=== PATIENT | female | born 1990 | race Caucasian/White ===

== ENCOUNTER 2016-12-01 20:44 | Inpatient (IN) | payer OTHER ==
[~2016-12-01] VITALS: Ht 162.6 cm; Wt 125.0 kg
[~2016-12-01 20:44] MED LIST: ACET650S24 PO; ACYC400T2 PO
[2016-12-02] MEDS ORDERED: Magnesium Hydroxide 10 mL Oral Concentration PO PRN (01:15)
[2016-12-02] MEDS ORDERED: Alum-Mag Hydrox-Simeth 30 mL Suspension PO PRN (01:15)
[2016-12-02] MEDS ORDERED: Benzocaine-Menthol Lozenge 2/Pkg PO PRN (01:15)
[2016-12-02] MEDS: Zolpidem 5 mg Tablet for FEMALE or >65YO PO PRN ×2 (02:20→21:26)
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
[2016-12-02 13:01] VITALS: BP 106/63; PULSE 59
--- NOTE | 2016-12-02 13:33 | NUR ---
Nursing day note- Patient keeping to herself and is guarded and made no eye contact when I attempted to talk with her. She has spent a large portion of the day coloring pictures for her children. She says that she doesn't want to be here. She stated that she was able to sleep last night after she was given a sleeping pill. She said that she was feeling weak, and was instructed to drink more fluids and to lie down in bed if she needed to.
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
--- NOTE | 2016-12-02 14:56 | NUR ---
Obs Dayshift Pt is spending most of her day out in the milieu coloring, play cards, and passing the time but keeping to herself. Pt does respond to staff, quiet and superficial. Doesn't engage w/ peers, poor eye contact, attends groups. quietly participates, appropriate, calm. Pt spent the morning doing art work for her kids. Pt appearance is flat, sad, disengaged. Good ADL's, Good meals
--- NOTE | 2016-12-02 16:03 | NUR ---
Wedger And Gluer/Counselor S:"I just miss my babies being little." O:Patient does not report any SI or HI, no AVH and rated her anxiety at a 0 and her depression at an 8. A: Patient was very cooperative and open. She attended and participated in stress reduction group. She has been out in the milieu and played the piano. She is interacting with other patients and is friendly with patients and staff. She has been sad and flat at times, and talks about her children. P:Follow care plan and coordinate with outpatient providers.
--- NOTE | 2016-12-03 06:59 | NUR ---
Sleep Delayed onset of sleep. Prn Ambien helpful. Pt able to sleep from [id number]. Total sleep during the night 5.5 hours.
--- NOTE | 2016-12-03 09:45 | PCM.DIMED ---
Discharge Instructions Date of Service Dec 03, 2016 Dates of Hospitalization Dec 02, 2016 at 01:04 Discharge Diagnosis Discharge Diagnosis Major Depression Recurrent nonpsychotic PTSD chronic Cluster B traits Diet Discharge Diet: No restrictions Activity Discharge Activity: No restrictions Jeremy Celeste DO Dec 03, 2016 09:45
[2016-12-03 13:31] VITALS: BP 84/58; PULSE 59; RESP 16
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
--- NOTE | 2016-12-03 16:02 | NUR ---
Endodontics Dentist/Counselor S:"I'd just like to see my kids before the no contact order is served." A:Patient did not express any SI or HI, no AVH and no anxiety. She rated her depression at a 2. Patient slept for about 5.5 hours. O: Patient was discharged at 1400 and picked up by her . She was provided with all necessary paperwork, and has a follow up appt with [facility] in [facility] in order to receive a referral to mental health services. Her was supportive of her receiving counseling. P: Follow discharge instructions and utilize safety plan.
--- NOTE | 2016-12-03 18:53 | NUR ---
NURS DISCHARGE NOTE Patient cooperative with discharge process. Acknowledges understanding of d/c instructions and has a copy with them upon leaving unit at 1410. Belongings accounted for and with patient. Prescriptions faxed to patients pharmacy. Patient denies harmful thoughts and hallucinations at this time.
== END 2016-12-03 14:10 | disposition home or self-care (01) | DRG 885 ==
LOC: MHC 12-02 01:04
PROVIDERS: ADMIT Psychiatry & Neurology Psychiatry; ATTEND Psychiatry & Neurology Psychiatry
DX: F33.2 Major depressive disorder, recurrent severe without psychotic features (principal); F43.12 Post-traumatic stress disorder, chronic; F41.1 Generalized anxiety disorder; F60.3 Borderline personality disorder